=== PATIENT | male | born 2000 | race Two or more races ===

== ENCOUNTER → 2023-01-14 | Emergency (ER) | payer OTHER ==
[~2023-01-14] VITALS: Ht 172.7 cm; Wt 63.5 kg
== END | disposition left against medical advice (07) ==
LOC: ER 19:32
DX: R10.32 Left lower quadrant pain (principal); Z91.013 Allergy to seafood

== ENCOUNTER 2023-02-03 09:39 | Outpatient (CLI) | payer OTHER | END 2023-02-03 10:05 | disposition home or self-care (01) | LOC: SONOGRAMA 09:39 | PROVIDERS: ATTEND Internal Medicine | DX: K46.9 Unspecified abdominal hernia without obstruction or gangrene (principal) ==